=== PATIENT | female | born 1990 | race Caucasian/White ===

== ENCOUNTER 2021-09-12 04:54 | Inpatient (IN) | payer MEDICAID ==
[2021-09-12] MEDS ORDERED: Methylergonovine 0.2 MG/1 ML Amp ONE (05:21)
[2021-09-12] MEDS ORDERED: Carboprost Tromethamine 250 MCG/1 ML Amp ONE (05:21)
[2021-09-12] MEDS ORDERED: Misoprostol 200 MCG Tab ONE (05:21)
[2021-09-12] MEDS ORDERED: Labetalol 20 MG/4 ML Syringe ONE (05:44)
[2021-09-12] MEDS ORDERED: Sennosides 8.6 MG Tab PO PRN (06:10)
[2021-09-12] MEDS ORDERED: Docusate Sodium 100 MG Cap PO PRN (06:10)
[2021-09-12] MEDS ORDERED: Acetaminophen 500 MG Tab PO PRN (06:10)
[2021-09-12] MEDS ORDERED: Ibuprofen 800 MG Tab PO PRN (06:10)
[2021-09-12] MEDS ORDERED: Sodium Chloride 0.9% 10 ML Syringe FLUSH PRN (06:10)
[2021-09-12] MEDS ORDERED: Lactated Ringers 1,000 ML IV SCH (06:15)
[2021-09-12] MEDS ORDERED: Magnesium Sulfate/Water 40 GM/1,000 ML BAG IV SCH (06:15)
[2021-09-12] MEDS ORDERED: WATER IV SCH (06:15)
[2021-09-12] MEDS ORDERED: MAGNESIUM SULFATE IV SCH (06:15)
[2021-09-12] MEDS ORDERED: Labetalol 20 MG/4 ML Syringe IVPUSH ONE ×3 (06:17→08:00)
[2021-09-12] MEDS ORDERED: Misoprostol 100 MCG Tab PO ONE (06:35)
[2021-09-12] MEDS ORDERED: Calcium Gluconate 10% 1 GM/10 ML SDV IV PRN (07:08)
[2021-09-12] MEDS: NIFEdipine 30 MG Tab.ER PO SCH ×2 (08:13→08:32)
[2021-09-12 08:58] LABS: CORONAVIRUS COVID-19 NAA POSITIVE (NEGATIVE)
[2021-09-12] MEDS ORDERED: Ampicillin 2 GM in Sodium Chloride 0.9% 100 ML IV SCH (10:00)
[2021-09-12 12:38] VITALS: BP 116/63
[2021-09-12 12:58] VITALS: PULSE 78
== END 2021-09-12 13:10 | DRG 805 ==
LOC: JP.OB 04:54 → OBSVTOIN 06:11
PROVIDERS: ADMIT Obstetrics & Gynecology; ATTEND Obstetrics & Gynecology
PROC: 10E0XZZ Delivery of Products of Conception, External Approach (ICD-10-PCS; principal; 2021-09-12)
DX: O99.02 Anemia complicating childbirth (principal); U07.1 COVID-19; Z37.0 Single live birth; O41.1230 Chorioamnionitis, third trimester, not applicable or unspecified; O98.52 Other viral diseases complicating childbirth; D64.9 Anemia, unspecified; O14.95 Unspecified pre-eclampsia, complicating the puerperium; O77.0 Labor and delivery complicated by meconium in amniotic fluid; Z3A.37 37 weeks gestation of pregnancy
CPT/HCPCS: 0241U; 36415; 80053; 80305-QW; 81001; 82947; 85025; 86850; 86900; 86901; 99211; A9270-GY; J0290; J1580; J2590; J3475; J3490; J7120